=== PATIENT | male | born 1980 | race Caucasian/White ===

== ENCOUNTER 2025-10-14 14:05 | Emergency (ER) | payer OTHER, SELFPAY ==
[2025-10-14 14:14] VITALS: BP 159/104; PULSE 90; RESP 16; TEMP 36.3; O2SAT 96; BMI 29.3
--- OUTSIDE RECORDS SUMMARY | 2025-10-14 14:17 | XMS_ITS | Encounter Summary ---
Author Organization [facility] Address [address] [place] [address] Phone [phone] Care Team Providers Care Assistant To The Dean Name Role Phone No, Pcp Primary Care Provider [phone] Reason for Visit * Reason Onset Date Comments Error (VOID this visit) 09/24/2025 Encounter Details Date Type Department Care Team (Late st Contact Info) Description 09/24/2025 Telephone [facility] [address] [facility] [address] [place] [id number] No, Pcp [address] [place], [place] [id number] Error (VOID this visit) Social History Tobacco Use Types Packs/Day Years Used Date Smoking Tobacco: Never Assessed Sex and Gender Information Value Date Recorded Sex Assigned at Not on file Legal Sex Male 12:42 PM PST Gender Identity Not on file Sexual Orientation Not on file documented as of this encounter Miscellaneous Notes * Telephone Encounter - Caridad Tolentino - 09/24/2025 12:56 PM PST ERROR DISREGARD documented in this encounter Plan of Treatment Not on file documented as of this encounter Visit Diagnoses Not on filedocumented in this encounter Care Teams Assistant To The Dean Relationship Specialty Start Date End Date No, Pcp [address] [place] [address] PCP - General Family Medicine 09/13/25 documented as of this encounter
--- NOTE | 2025-10-14 14:41 | DI.US.S_ITS ---
PROCEDURE: US PERIPH VENOUS LOW EXTREM RT INDICATIONS: RIGHT CALF PAIN TECHNIQUE: Real-time imaging, as well as color and pulse Doppler interrogation, were performed of the lower extremity deep veins from the inguinal ligament to the popliteal fossa, with documentation of the visualized calf veins. COMPARISON: None. FINDINGS: The common femoral, femoral, popliteal, and the visualized calf veins are normally compressible, and free of intraluminal thrombus. Color and pulse Doppler demonstrate normal phasic intraluminal flow. There is normal augmentation response to distal compression maneuver. IMPRESSION: No findings of lower extremity deep venous thrombosis. Dictated by: Bam Mares M.D. on 10/14/2025 at 15:57 Approved by: Bam Mares M.D. on 10/14/2025 at 15:58
--- NOTE | 2025-10-14 14:43 | ED_ITS ---
HPI - Back Pain/Injury <Autumn Vance PA-C - Last Filed: 10/14/25 17:21> General Chief Complaint: Back Pain/Injury Stated Complaint: numbness rt foot, stiff calf, L&I Time Seen by Provider: 10/14/25 14:34 Source: patient History of Present Illness HPI Narrative: 45-year-old male presents to the ED with 1 month of right-sided lower back pain with pain radiating down his right leg. Over the last couple days, patient also noted that his right calf feels very stiff and painful. Yesterday, patient had an episode of feeling lightheaded when he stood up after doing some lying down stretches. Patient does endorse that he sometimes gets lightheaded when he stands up quickly. The lightheadedness has since resolved. Patient denies any trauma. 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 Patient had 2 therefore scoot forward and hunch forward in order to drive. Patient has been taking Tylenol and ibuprofen at home with little relief. Patient endorses some numbness on the lateral aspect of his right foot. No saddle paresthesias, urinary hesitancy. No chest pain, shortness of breath, fever, chills, nausea, vomiting, syncope. Related Data Previous Rx's ?Medication ?Instructions ?Recorded cyclobenzaprine 10 mg tablet 10 mg PO TID PRN muscle s [facility]20 10/14/25 tabs Allergies Allergy/AdvReac Type Severity Reaction Status Date / Time No Known Drug Allergies Allergy Verified 10/14/25 14:14 Review of Systems <Autumn Vance PA-C - Last Filed: 10/14/25 17:21> Constitutional Constitutional: Denies chills, Denies fatigue, Denies fever(s), Denies frequent falls, Denies lethargy and Denies weakness Eyes Eyes: Denies change in vision, Denies eye discharge, Denies irritation and Denies loss of vision ENT Ears, Nose, Mouth, and Throat: Denies change in voice, Denies dizziness, Denies neck pain, Denies sore throat and Denies throat swelling Cardiovascular Cardiovascular: Denies chest pain, Denies irregular heart rhythm, Reports lightheadedness, Denies palpitations, Denies dyspnea, Denies dyspnea on exertion and Denies orthopnea Respiratory Respiratory: Denies cough, Denies dyspnea, Denies dyspnea on exertion and Denies wheezing Gastrointestinal Gastrointestinal: Denies abdominal pain, Denies change in bowel habits, Denies diarrhea, Denies nausea and Denies vomiting Musculoskeletal Musculoskeletal: Reports back pain, Denies neck pain, Denies numbness and Reports radiating pain into limb Comments: Right calf tightness, pain Integumentary/Breasts Skin/Breast: Denies pruritus, Denies erythema, Denies rash and Denies wounds Neurologic Neurologic: Denies behavioral changes, Denies confusion, Denies dizziness, Denies frequent falls, Denies loss of vision, Denies numbness and Denies weakness Psychiatric Psychiatric: Denies anxiety, Denies behavioral changes, Denies confusion, Denies depression, Denies homicidal ideation and Denies suicidal ideation Endocrine Endocrine: Denies fatigue, Denies flushing and Denies palpitations Hematologic/Lymphatic Hematologic/Lymphatic: Denies easy bruising Allergic/Immunologic Allergic/Immunologic: Denies urticaria, Denies throat swelling and Denies wheezing Patient History <Autumn Vance PA-C - Last Filed: 10/14/25 17:21> Social History Smoking Status: Never smoker Smoking Status: Never smoker Alcohol type: beer Exam <Autumn Vance PA-C - Last Filed: 10/14/25 17:21> Narrative Exam Narrative: Const General:?cooperative, healthy appearing and comfortable [facility] Head:?normal to inspection Ears:?hearing grossly normal bilaterally Nose:?external nose normal Face and sinus:?normal facial exam and sinuses nontender Mouth:?oral mucosae normal Throat:?posterior oropharynx normal Eyes General:?appearance normal, both eyes and all related structures Neck Neck:?normal visual inspection and no lymphadenopathy noted Resp Effort & Inspection:?normal respiratory effort Auscultation:?clear to auscultation bilaterally Cardio Rate:?regular rate Rhythm:?regular rhythm Musculoskeletal There is some midline tenderness to palpation in the lumbar region. No paraspinal tenderness to palpation. No abnormalities in the right calf noted on exam, compartments are soft. Patient is neurovascularly intact. Neuro General:?patient alert, patient awake and patient oriented x3 Initial Vital Signs Initial Vital Signs: Vital Signs Temperature 97.3 F L 10/14/25 14:14 Pulse Rate 90 10/14/25 14:14 Respiratory Rate 16 10/14/25 14:14 Blood Pressure 159/104 H 10/14/25 14:14 Pulse Oximetry 96 10/14/25 14:14 Oxygen Delivery Method Room Air 10/14/25 14:14 <Argelia Garsia DO - Last Filed: 10/15/25 08:42> Initial Vital Signs Initial Vital Signs: Vital Signs Temperature 97.3 F L 10/14/25 14:14 Pulse Rate 90 10/14/25 14:14 Respiratory Rate 16 10/14/25 14:14 Blood Pressure 159/104 H 10/14/25 14:14 Pulse Oximetry 96 10/14/25 14:14 Oxygen Delivery Method Room Air 10/14/25 14:14 Course <Autumn Vance PA-C - Last Filed: 10/14/25 17:21> Orders Ordered: Discontinued Medications Acetaminophen (Acetaminophen 325 Mg Tablet) 975 mg PO NOW ONE Stop: 10/14/25 14:43 Last Admin: 10/14/25 15:00 Dose: 975 mg Documented By: GERMÁN Cyclobenzaprine HCl (Cyclobenzaprine 10 Mg Tablet) 10 mg PO NOW ONE Stop: 10/14/25 14:43 Last Admin: 10/14/25 15:00 Dose: 10 mg Documented By: GERMÁN Ketorolac Tromethamine (Ketorolac 30 Mg/Ml Vial) 30 mg IM NOW ONE Stop: 10/14/25 14:43 Last Admin: 10/14/25 14:59 Dose: 30 mg Documented By: GERMÁN Vital Signs Vital signs: Vital Signs - 8 hr 10/14/25 14:14 10/14/25 17:10 Temperature 97.3 F L 98.2 F Pulse Rate 90 84 Respiratory Rate 16 18 Blood Pressure 159/104 H 162/99 H Pulse Oximetry 96 98 Oxygen Delivery Method Room Air Room Air <DO Rylan Mensah Last Filed: 10/15/25 08:42> Orders Ordered: Discontinued Medications Acetaminophen (Acetaminophen 325 Mg Tablet) 975 mg PO NOW ONE Stop: 10/14/25 14:43 Last Admin: 10/14/25 15:00 Dose: 975 mg Documented By: GERMÁN Cyclobenzaprine HCl (Cyclobenzaprine 10 Mg Tablet) 10 mg PO NOW ONE Stop: 10/14/25 14:43 Last Admin: 10/14/25 15:00 Dose: 10 mg Documented By: GERMÁN Ketorolac Tromethamine (Ketorolac 30 Mg/Ml Vial) 30 mg IM NOW ONE Stop: 10/14/25 14:43 Last Admin: 10/14/25 14:59 Dose: 30 mg Documented By: GERMÁN Vital Signs Vital signs: Vital Signs - 8 hr 10/14/25 14:14 10/14/25 17:10 Temperature 97.3 F L 98.2 F Pulse Rate 90 84 Respiratory Rate 16 18 Blood Pressure 159/104 H 162/99 H Pulse Oximetry 96 98 Oxygen Delivery Method Room Air Room Air MDM - Back Pain/Injury <Autumn Vance PA-C - Last Filed: 10/14/25 17:21> MDM Narrative Medical decision making narrative: 45-year-old male presents to the ED with 1 month of right-sided lower back pain with pain radiating down his right leg. Concern for DVT versus fracture/dislocation versus musculoskeletal sprain/strain versus other. Will obtain ultrasound, CT lumbar. Will give Toradol, Flexeril, Tylenol for pain. Will reassess. Patient's symptoms improved with Toradol, cyclobenzaprine. CT scan shows disc herniation in the L5-S1 region. No fracture/dislocation. Ultrasound without DVT/blood clots. Discussed findings with patient. Recommend follow-up with PCP as soon as possible for further evaluation, PT referral. Prescribed Flexeril. ED return precautions discussed with patient. Patient verbalized understanding. Medical records reviewed: Yes Discharge Plan Departure Patient Disposition: Home Clinical Impression: Back pain Qualifiers: Back pain location: low back pain Chronicity: acute Back pain laterality: right Sciatica presence: with sciatica Sciatica laterality: sciatica of right side Qualified Code(s): M54.41 - Lumbago with sciatica, right side Instructions: DI for Back Pain With Sciatica Activity Restrictions/Additional Instructions: You were evaluated in the emergency department today for back pain and leg pain. The ultrasound did not show any DVTs or blood clots. We did a CT of the lower back which did not show any fractures or dislocations, does show some disc bulges. Your pain could be from the disc bulge versus a musculoskeletal spr ain/strain of the lower back. Your symptoms improved with the Toradol and the muscle relaxant. You are being prescribed a muscle relaxant to continue taking along with ibuprofen for pain relief. Please follow-up with your PCP as soon as possible so you can get a referral to physical therapy. Return to the ED if you have worsening symptoms, numbness, tingling, weakness, urinary difficulties. Prescriptions: New cyclobenzaprine 10 mg tablet 10 mg PO TID PRN (Reason: muscle spasm) Qty: 20 0RF Stand Alone Forms: Patient Portal/API ED Sign-out <Argelia Garsia DO - Last Filed: 10/15/25 08:42> Cosign ED Attending Coskevinature Attestation: I was immediately available in the department for consultation.
--- NOTE | 2025-10-14 14:45 | DI.CT.S_ITS ---
PROCEDURE: CT LUMBAR SPINE WO CON INDICATIONS: low back pain TECHNIQUE: Noncontrast 3 mm thick sections acquired from the T12 level to the sacrum. Sagittal and coronal reformats were constructed. For radiation dose reduction, the following was used: automated exposure control. COMPARISON: None. FINDINGS: Image quality: Diagnostic. Bones: There is normal bony alignment. No acute vertebral body compression fractures. No suspicious lytic or blastic bony lesions. No pars defects. T12-L1: No significant neuroforaminal or spinal canal stenosis. L1-L2: No significant neuroforaminal or spinal canal stenosis. L2-L3: No significant neuroforaminal or spinal canal stenosis. L3-L4: Mild bilateral facet arthropathy. Small symmetric disc bulge. Minimal effacement of the anterior thecal sac. No significant neuroforaminal or spinal canal stenosis. L4-L5: Minimal disc bulge. No significant neuroforaminal or spinal canal stenosis. L5-S1: Bilateral facet arthropathy. Eccentric to the right small symmetric disc bulge with concurrent right posterior disc herniation measuring approximately 2.1 cm in transverse dimension and 1.0 cm in AP dimension. This causes moderate effacement of the right subarticular and right foraminal zones with resulting moderate-severe right neuroforaminal stenosis and minimal spinal canal. There is also suspected abutment of the transiting nerve roots. Mild disc space loss and is degenerative endplate changes. Mild-moderate left neuroforaminal stenosis. Soft tissues: No retroperitoneal masses or hematomas. Visualized aorta is normal in caliber. IMPRESSION: Lumbar spine without acute osseous abnormalities or malalignment. Multilevel, multifactorial lumbar spondylosis as described above with findings most severe at L5-S1 where combination of bilateral facet arthropathy, eccentric to the right disc bulge, and prominent right-sided posterior disc herniation. This results in moderate-severe right neuroforaminal stenosis at L5-S1 and mild-moderate left neuroforaminal stenosis. There is minimal spinal canal stenosis at this level. Dictated by: Jayden Guy M.D. on 10/14/2025 at 16:41 Approved by: Jayden Guy M.D. on 10/14/2025 at 16:52
[2025-10-14] MEDS: KETOROLAC 30 MG/ML VIAL IM (14:59)
[2025-10-14] MEDS: ACETAMINOPHEN 325 MG TABLET 975 MG PO (15:00)
[2025-10-14] MEDS: CYCLOBENZAPRINE 10 MG TABLET PO (15:00)
[2025-10-14 17:10] VITALS: BP 162/99; PULSE 84; RESP 18; TEMP 36.8; O2SAT 98
== END 2025-10-14 17:26 | disposition home or self-care (01) ==
PROVIDERS: Emergency Provider Student in an Organized Health Care Education/Training Program
DX: M54.41 Lumbago with sciatica, right side (principal); M79.661 Pain in right lower leg; R42 Dizziness and giddiness
CPT/HCPCS: 72131; 93971; 96372; 99284; J1885